=== PATIENT | male | born 2000 | race Caucasian/White ===

== ENCOUNTER 2023-08-30 12:30 | Outpatient (CLI) | payer BC, SELFPAY ==
--- NOTE | 2023-08-30 13:00 | XR_ITS ---
Patient: DACIA ZULETA Facility:?[facility] Patient ID:?[id number] Site Patient ID:?[id number]. Site :?[id number] Study:?XRay-Chest 2V-08/30/2023 12:59:40 PM Ordering Physician:?JOSEE PACHECO Final Report: INDICATION: TB screening COMPARISON: none TECHNIQUE: Two views of the chest were obtained. FINDINGS: The lungs are clear. There is no evidence of a suspicious infiltrate, cavitary lesion or focal pleural abnormality. Pulmonary allyssa are of normal size and density. Heart and blood vessels appear normal and there is no evidence of pleural fluid. IMPRESSION: No active pulmonary process identified. Dictated by Stanley Gann MD @ 08/30/2023 1:06:36 PM Signed by:?Stanley Gann MD @08/30/2023 1:06:36 PM (Electronic Signature)
== END 2023-08-30 12:31 | disposition home or self-care (01) ==
PROVIDERS: Visit Provider Nurse Practitioner
DX: Z11.1 Encounter for screening for respiratory tuberculosis (principal); Z71.84 Encounter for health counseling related to travel
CPT/HCPCS: 36415; 71046; 86480